=== PATIENT | female | born 1975 | race Caucasian/White ===

== ENCOUNTER 2017-02-14 15:42 | Emergency (ER) | payer BC ==
--- NOTE | 2017-02-14 16:06 | EDM.PDOC ---
ED HPI GENERAL MEDICAL PROBLEM - General Chief Complaint: Abdominal Pain Stated Complaint: UPPER ABDOMINAL PAIN Time Seen by Provider: 02/14/17 15:53 - History of Present Illness INITIAL COMMENTS - FREE TEXT/NARRATIVE: HISTORY AND PHYSICAL: History of present illness: Patient 41-year-old female history gastric bypass surgery remotely who presents with concern of abdominal pain for a month to month and a half now with associated nausea and left flank pain she denies any trauma denies fever chills chest pain shortness breath or other concern she has had some associated anorexia Review of systems: As per history of present illness and below otherwise all systems reviewed and negative. Past medical history: As per history of present illness and as reviewed below otherwise noncontributory. Surgical history: As per history of present illness and as reviewed below otherwise noncontributory. Social history: No reported history of drug or alcohol abuse. Family history: As per history of present illness and as reviewed below otherwise noncontributory. Physical exam: HEENT: Atraumatic, normocephalic, pupils reactive, negative for conjunctival pallor or scleral icterus, mucous membranes dry, throat clear, neck supple, nontender, trachea midline. Lungs: Clear to auscultation, breath sounds equal bilaterally, chest nontender. Heart: S1S2, regular, negative for clicks, rubs, or JVD. Abdomen: Soft, nondistended, no localized tenderness. Negative for masses or hepatosplenomegaly. Equivocal left-sided costovertebral tenderness. Pelvis: Stable nontender. Genitourinary: Deferred. Rectal: Deferred. Extremities: Atraumatic, negative for cords or calf pain. Neurovascular unremarkable. Neuro: Awake, alert, oriented. Cranial nerves II through XII unremarkable. Cerebellum unremarkable. Motor and sensory unremarkable throughout. Exam nonfocal. Diagnostics: CBC CMP lipase UA hCG chest x-ray EKG CT abdomen and pelvis Therapeutics: Normal saline 1 L bolus Zofran 4 mg IV Dilaudid 1 mg IV Impression: #1 abdominal/flank pain #2 history gastric bypass surgery Definitive disposition and diagnosis as appropriate pending reevaluation and review of above. 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: Neurological History: Reports: None Psychiatric History: Reports: ADHD, Bipolar, Depression, OCD Endocrine/Metabolic History: Reports: Diabetes, Type II Hematologic History: Reports: None Immunologic History: Reports: None Oncologic (Cancer) History: Reports: None Dermatologic History: Reports: None - Infectious Disease History Infectious Disease History: Reports: Chicken Pox - Past Surgical History Head Surgeries/Procedures: Reports: None GI Surgical History: Reports: Cholecystectomy Other Musculoskeletal Surgeries/Procedures:: left knee surgery Social & Family History - Family History Family Medical History: Noncontributory - Tobacco Use Smoking Status *Q: Never Smoker Second Hand Smoke Exposure: No - Alcohol Use Days Per Week of Alcohol Use: 0 - Recreational Drug Use Recreational Drug Use: No ED ROS GENERAL - Review of Systems Review Of Systems: ROS reveals no pertinent complaints other than HPI. ED EXAM, GENERAL - Physical Exam Exam: See Below (See dictation) Course - Vital Signs Last Recorded V/S: Last Vital Signs Temp 36.5 C 02/14/17 15:54 Pulse 71 02/14/17 15:54 Resp 20 02/14/17 15:54 BP 139/92 H 02/14/17 15:54 Pulse Ox 100 02/14/17 15:54 - Orders/Labs/Meds Orders: Active Orders 24 hr Category Date Time Status EKG Documentation Completion [RC] STAT Care 02/14/17 16:06 Active Abdomen Pelvis wo Cont [CT] Stat Exams 02/14/17 16:07 Taken CULTURE BLOOD [BC] Stat Lab 02/14/17 16:16 Results CULTURE BLOOD [BC] Stat Lab 02/14/17 17:30 Received CULTURE URINE [RM] Stat Lab 02/14/17 16:20 Received Sodium Chloride 0.9% [Saline Flush] Med 02/14/17 16:07 Active 10 ml FLUSH ASDIRECTED PRN Sodium Chloride 0.9% [Saline Flush] Med 07/03/17 16:07 Active 2.5 ml FLUSH ASDIRECTED PRN Blood Culture x2 Reflex Set [OM.PC] Stat Ot 02/14/17 17:03 Ordered Saline Lock Insert [OM.PC] Stat Ot 02/14/17 16:06 Ordered Medication Orders Sodium Chloride (Saline Flush) 10 ml FLUSH ASDIRECTED PRN PRN Reason: Keep Vein Open Sodium Chloride (Saline Flush) 2.5 ml FLUSH ASDIRECTED PRN PRN Reason: Keep Vein Open Labs: Laboratory Tests 02/14/17 02/14/17 02/14/17 Range/Units 16:16 16:16 16:16 WBC 9.62 (4.0-11.0) K/uL RBC 4.08 L (4.30-5.90) M/uL Hgb 9.8 L (12.0-16.0) g/dL Hct 32.5 L (36.0-46.0) % MCV 79.7 L (80.0-98.0) fL MCH 24.0 L (27.0-32.0) pg MCHC 30.2 L (31.0-37.0) g/dL RDW Std Deviation 45.3 (28.0-62.0) fl RDW Coeff of Elmo 16 H (11.0-15.0) % Plt Count 175 (150-400) K/uL MPV 10.20 (7.40-12.00) fL Neut % (Auto) 76.5 (48.0-80.0) % Lymph % (Auto) 13.4 L (16.0-40.0) % [place] % (Auto) 7.6 (0.0-15.0) % Eos % (Auto) 2.3 (0.0-7.0) % Baso % (Auto) 0.2 (0.0-1.5) % Neut # (Auto) 7.4 H (1.4-5.7) K/uL Lymph # (Auto) 1.3 (0.6-2.4) K/uL [place] # (Auto) 0.7 (0.0-0.8) K/uL Eos # (Auto) 0.2 (0.0-0.7) K/uL Baso # (Auto) 0.0 (0.0-0.1) K/uL Nucleated RBC % 0.0 /100WBC Nucleated RBCs # 0 K/uL INR 0.98 (0.86-1.11) Lactate 1.3 (0.20-2.00) mmol/L Sodium (136-146) mmol/L Potassium (3.5-5.1) mmol/L Chloride (98-110) mmol/L Carbon Dioxide (21-31) mmol/L BUN (6.0-23.0) mg/dL Creatinine (0.6-1.5) mg/dL Est Cr Clr Drug Dosing mL/min Estimated GFR (MDRD) ml/min Glucose (60-110) mg/dL Calcium (8.8-10.8) mg/dL Total Bilirubin (0.1-1.5) mg/dL AST (5-40) IU/L ALT (8-54) IU/L Alkaline Phosphatase (40-150) Total Protein (6.0-8.0) g/dL Albumin (3.5-5.0) g/dL Globulin (2.0-3.5) g/dL Albumin/Globulin Ratio (1.3-2.8) Amylase (10-90) U/L Lipase (7-80) U/L HCG, Qual (NEG) Urine Color Urine Appearance Urine pH (5.0-8.0) Ur Specific Catlett (1.001-1.035) Urine Protein (NEGATIVE) mg/dL Urine Glucose (UA) (NEGATIVE) mg/dL Urine Ketones (NEGATIVE) mg/dL Urine Occult Blood (NEGATIVE) Urine Nitrite (NEGATIVE) Urine Bilirubin (NEGATIVE) Urine Urobilinogen (<2.0) EU/dL Ur Leukocyte Esterase (NEGATIVE) Urine RBC (0-2/HPF) Urine WBC (0-5/HPF) Ur Epithelial Cells (NONE-FEW) Urine Bacteria (NEGATIVE) Urine Mucus (NONE-MOD) Urine Yeast 02/14/17 02/14/17 02/14/17 Range/Units 16:16 16:16 16:20 WBC (4.0-11.0) K/uL RBC (4.30-5.90) M/uL Hgb (12.0-16.0) g/dL Hct (36.0-46.0) % MCV (80.0-98.0) fL MCH (27.0-32.0) pg MCHC (31.0-37.0) g/dL RDW Std Deviation (28.0-62.0) fl RDW Coeff of Elmo (11.0-15.0) % Plt Count (150-400) K/uL MPV (7.40-12.00) fL Neut % (Auto) (48.0-80.0) % Lymph % (Auto) (16.0-40.0) % [place] % (Auto) (0.0-15.0) % Eos % (Auto) (0.0-7.0) % Baso % (Auto) (0.0-1.5) % Neut # (Auto) (1.4-5.7) K/uL Lymph # (Auto) (0.6-2.4) K/uL [place] # (Auto) (0.0-0.8) K/uL Eos # (Auto) (0.0-0.7) K/uL Baso # (Auto) (0.0-0.1) K/uL Nucleated RBC % /100WBC Nucleated RBCs # K/uL INR (0.86-1.11) Lactate (0.20-2.00) mmol/L Sodium 140 (136-146) mmol/L Potassium 4.0 (3.5-5.1) mmol/L Chloride 110 (98-110) mmol/L Carbon Dioxide 19 L (21-31) mmol/L BUN 10 (6.0-23.0) mg/dL Creatinine 1.1 (0.6-1.5) mg/dL Est Cr Clr Drug Dosing 72.05 mL/min Estimated GFR (MDRD) 54.5 ml/min Glucose 97 (60-110) mg/dL Calcium 9.8 (8.8-10.8) mg/dL Total Bilirubin 0.4 (0.1-1.5) mg/dL AST 15 (5-40) IU/L ALT 8 (8-54) IU/L Alkaline Phosphatase 128 (40-150) Total Protein 7.4 (6.0-8.0) g/dL Albumin 4.0 (3.5-5.0) g/dL Globulin 3.4 (2.0-3.5) g/dL Albumin/Globulin Ratio 1.2 L (1.3-2.8) Amylase 60 (10-90) U/L Lipase 51 (7-80) U/L HCG, Qual NEGATIVE (NEG) Urine Color YELLOW Urine Appearance CLOUDY Urine pH 6.0 (5.0-8.0) Ur Specific [place] 1.025 (1.001-1.035) Urine Protein TRACE (NEGATIVE) mg/dL Urine Glucose (UA) NEGATIVE (NEGATIVE) mg/dL Urine Ketones NEGATIVE (NEGATIVE) mg/dL Urine Occult Blood MODERATE (NEGATIVE) Urine Nitrite NEGATIVE (NEGATIVE) Urine Bilirubin NEGATIVE (NEGATIVE) Urine Urobilinogen 1.0 (<2.0) EU/dL Ur Leukocyte Esterase MODERATE (NEGATIVE) Urine RBC 2-4 (0-2/HPF) Urine WBC TO NUMEROUS TO COUNT H (0-5/HPF) Ur Epithelial Cells MODERATE (NONE-FEW) Urine Bacteria FEW (NEGATIVE) Urine Mucus LIGHT (NONE-MOD) Urine Yeast OCCASIONAL Meds: Medications Generic Name Dose Route Start Last Admin Trade Name Freq PRN Reason Stop Dose Admin Sodium Chloride 10 ml 02/14/17 16:07 Saline Flush FLUSH ASDIRECTED PRN Keep Vein Open Sodium Chloride 2.5 ml 02/14/17 16:07 Saline Flush FLUSH ASDIRECTED PRN Keep Vein Open Discontinued Medications Generic Name Dose Route Start Last Admin Trade Name Freq PRN Reason Stop Dose Admin Hydromorphone HCl 1 mg 02/14/17 16:07 02/14/17 17:05 Dilaudid IVPUSH 02/14/17 16:08 1 mg ONETIME ONE Administration Sodium Chloride 1,000 mls @ 999 mls/hr 02/14/17 16:07 02/14/17 16:45 Normal Saline IV 02/14/17 17:07 999 mls/hr STAT ONE Administration Ceftriaxone Sodium/Dextrose 1 50 mls @ 100 mls/hr 02/14/17 17:03 02/14/17 17: 16 gm/ Premix IV 02/14/17 17:32 100 mls/hr ONETIME ONE Administration Ondansetron HCl 4 mg 02/14/17 16:07 02/14/17 16:50 Zofran IVPUSH 02/14/17 16:08 4 mg ONETIME ONE Administration Departure - Departure Time of Disposition: 16:06 Disposition: DC/Tfer to Acute Hospital 02 Condition: Good Clinical Impression: Obstructive uropathy, Urinary tract infection - Discharge Information Referrals: Rian Metcalf MD [Primary Care Provider] - Forms: ED Department Discharge - My Orders Last 24 Hours: My Active Orders 02/14/17 16:06 EKG Documentation Completion [RC] STAT Saline Lock Insert [OM.PC] Stat 02/14/17 16:07 Abdomen Pelvis wo Cont [CT] Stat Sodium Chloride 0.9% [Saline Flush] 10 ml FLUSH ASDIRECTED PRN Sodium Chloride 0.9% [Saline Flush] 2.5 ml FLUSH ASDIRECTED PRN 02/14/17 16:16 CULTURE BLOOD [BC] Stat 02/14/17 16:20 CULTURE URINE [RM] Stat 02/14/17 17:03 Blood Culture x2 Reflex Set [OM.PC] Stat 02/14/17 17:30 CULTURE BLOOD [BC] Stat - Assessment/Plan Last 24 Hours: My Active Orders 02/14/17 16:06 EKG Documentation Completion [RC] STAT Saline Lock Insert [OM.PC] Stat 02/14/17 16:07 Abdomen Pelvis wo Cont [CT] Stat Sodium Chloride 0.9% [Saline Flush] 10 ml FLUSH ASDIRECTED PRN Sodium Chloride 0.9% [Saline Flush] 2.5 ml FLUSH ASDIRECTED PRN 02/14/17 16:16 CULTURE BLOOD [BC] Stat 02/14/17 16:20 CULTURE URINE [RM] Stat 02/14/17 17:03 Blood Culture x2 Reflex Set [OM.PC] Stat 02/14/17 17:30 CULTURE BLOOD [BC] Stat
[2017-02-14] MEDS ORDERED: Ondansetron 4 MG/2 ML SDV IVPUSH ONE (16:07)
[2017-02-14] MEDS ORDERED: Sodium Chloride 0.9% 10 ML Syringe FLUSH PRN (16:07)
[2017-02-14] MEDS ORDERED: HYDROmorphone 2 MG/ML Syringe IVPUSH ONE (16:07)
[2017-02-14] MEDS ORDERED: Sodium Chloride 0.9% 1,000 ML IV ONE (16:07)
[2017-02-14] MEDS ORDERED: Sodium Chloride 0.9% 2.5 ML Syringe FLUSH PRN (16:07)
[2017-02-14] MEDS ORDERED: cefTRIAXone 1 GM in Premix Bag 1 BAG IV ONE (17:03)
[2017-02-14] MEDS ORDERED: HYDROmorphone 1 MG/ML Syringe IVPUSH ONE (18:55)
[2017-02-14 19:05] VITALS: BP 146/75
--- NOTE | 2017-02-16 14:27 | CT ---
EXAM DATE: 02/14/17 PATIENT'S AGE: 41 Patient: CHRIS CARDENAS Facility: [place], [place] Site . Site : 1975 Study: CT Abdomen/Pelvis [id number]/3/2017 5:46:47 PM Ordering Physician: Ronda Jade Final Report: INDICATION: L flank pain TECHNIQUE: Noncontrast CT scan of the abdomen and pelvis. COMPARISON: CT scan of the abdomen and pelvis dated 04 October 2014. FINDINGS: The lung bases are unremarkable. No focal abnormalities identified in the visualized portions of the liver, spleen, pancreas, and adrenal glands. 4 mm stone in the proximal left ureter which causes mild left-sided hydronephrosis and edema of the left kidney. A few nonobstructing nephroliths in the right kidney. No right-sided hydronephrosis. No other uroliths. Colonic diverticulosis with no evidence of diverticulitis. Gastric bypass changes. Normal appendix. Small area of fat necrosis in the anterior aspect of the left lower abdomen. Scattered small retroperitoneal lymph nodes which do not meet size criteria for adenopathy. No pelvic sidewall or mesenteric adenopathy. IMPRESSION: 4 mm stone in the proximal left ureter which causes mild left-sided hydronephrosis. Dictated by Pratik Mckeon MD @ 02/14/2017 6:16:51 PM Dictated by: Pratik Mckeon MD @ 02/14/2017 18:16:58 (Electronic Signature) Report Signed by Proxy. MESHA
== END 2017-02-14 19:05 ==
LOC: MW.ED 15:42
DX: N13.9 Obstructive and reflux uropathy, unspecified (principal); N39.0 Urinary tract infection, site not specified; E11.9 Type 2 diabetes mellitus without complications; Z79.899 Other long term (current) drug therapy; Z90.49 Acquired absence of other specified parts of digestive tract
CPT/HCPCS: 36415; 74176; 80053; 81001; 82150; 83605; 83690; 84703; 85025; 85610; 87040; 87086; 87088; 87186; 93005; 96361; 96365; 96375; 96376; 99285; J0696; J1170; J2405; J7040; 87077

== ENCOUNTER 2017-02-15 20:03 | Emergency (ER) | payer BC ==
--- NOTE | 2017-02-15 20:14 | EDM.PDOC ---
ED HPI GENERAL MEDICAL PROBLEM - General Chief Complaint: Genitourinary Problem Stated Complaint: UNKNOWN Time Seen by Provider: 02/15/17 20:06 - History of Present Illness INITIAL COMMENTS - FREE TEXT/NARRATIVE: This patient was seen by myself yesterday and transferred to [facility] with obstructive uropathy and urinary tract infection she was seen there evaluating emergency department urology was reportedly consult that and patient was discharged on pain medication and Flomax in the interim blood cultures that were drawn in the emergency department yesterday by myself did come back positive for gram-negative rods patient continues to have pain she has had some chills denies bethanie fever denies nausea or vomiting upon arrival here patient requests that she drive herself to [place] for evaluation and admission through the emergency department I discussed case with the ER doc in [place] Dr. Cabral who does agree to see the patient and does have plans on admission for IV antibiotics monitoring a urology consultation this was all discussed with the patient patient defers any medical screening exam are diagnostics here she was offered all the above including transfer by ambulance and declines she will be discharged as refusing medical screening exam for direct follow-up per private vehicle and her request to [facility] as above lower back Pain Score (Numeric/FACES): 7 - Related Data Allergies Allergy/AdvReac Type Severity Reaction Status Date / Time No Known Allergies Allergy Verified 02/15/17 20:04 Home Meds: Home Meds oxyCODONE HCl/Acetaminophen [oxyCODONE-Acetaminophen 5-325] 1 tab PO Q4H PRN 11/29 [History] Past Medical History HEENT History: Reports: None Cardiovascular History: Reports: None Respiratory History: Reports: None Other Gastrointestinal History: gastric bypass Genitourinary History: Reports: None 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: Neurological History: Reports: None Psychiatric History: Reports: ADHD, Bipolar, Depression, OCD Endocrine/Metabolic History: Reports: Diabetes, Type II Hematologic History: Reports: None Immunologic History: Reports: None Oncologic (Cancer) History: Reports: None Dermatologic History: Reports: None - Infectious Disease History Infectious Disease History: Reports: Chicken Pox - Past Surgical History Head Surgeries/Procedures: Reports: None GI Surgical History: Reports: Cholecystectomy Other Musculoskeletal Surgeries/Procedures:: left knee surgery Social & Family History - Family History Family Medical History: Noncontributory - Tobacco Use Smoking Status *Q: Never Smoker Second Hand Smoke Exposure: No - Alcohol Use Days Per Week of Alcohol Use: 0 - Recreational Drug Use Recreational Drug Use: No ED ROS GENERAL - Review of Systems Review Of Systems: See Below (Not applicable) ED EXAM, GENERAL - Physical Exam Exam: See Below (Not applicable) Course - Vital Signs Last Recorded V/S: Last Vital Signs Temp 37.4 C 02/15/17 20:05 Pulse 116 H 02/15/17 20:05 Resp 18 02/15/17 20:05 BP 135/68 02/15/17 20:05 Pulse Ox 100 02/15/17 20:05 Departure - Departure Time of Disposition: 20:13 Disposition: Against Medical Advice 07 Condition: Undetermined Clinical Impression: History of UTI, Obstructive uropathy - Discharge Information Forms: ED Department Discharge
== END 2017-02-15 20:30 | disposition left against medical advice (07) ==
LOC: MW.ED 20:03
CPT/HCPCS: 99282; 99283

== ENCOUNTER 2017-05-26 06:23 | Day surgery (SDC) | payer BC ==
[~2017-05-26 06:23] MED LIST: Lactated Ringers 1,000 ML IV SCH
--- NOTE | 2017-05-26 07:13 | PCM.PREANE ---
Preanesthetic Assessment - Anesthesia/Transfusion/Family Hx Anesthesia History: Prior Anesthesia Without Reaction Family History of Anesthesia Reaction: No Transfusion History: No Prior Transfusion(s) Intubation History: Unknown - Review of Systems General: No Symptoms Pulmonary: No Symptoms Cardiovascular: No Symptoms Gastrointestinal: Nausea, Vomiting Neurological: No Symptoms Other: Reports: None - Physical Assessment Height: 1.75 m Weight: 100.698 kg ASA Class: 2 Mental Status: Alert & Oriented x3 Airway Class: Mallampati = 2 Dentition: Reports: Broken Tooth/Teeth, Caries (front upper teeth significant teeth defect sec. to caries) Thyro-Mental Finger Breadths: 2 Mouth Opening Finger Breadths: 3 ROM/Head Extension: Full Lungs: Clear to Auscultation, Normal Respiratory Effort Cardiovascular: Regular Rate, Regular Rhythm - Lab Values: Laboratory Last Values POC Glucose 77 mg/dL (60-110) 05/26/17 06:41 Urine HCG, Qual NEGATIVE (NEGATIVE) 05/26/17 06:26 - Allergies Allergies/Adverse Reactions: Allergies Allergy/AdvReac Type Severity Reaction Status Date / Time No Known Allergies Allergy Verified 05/23/17 16:19 - Blood Blood Available: No - Anesthesia Plan Pre-Op Medication Ordered: None - Acknowledgements Anesthesia Type Planned: MAC Pt an Appropriate Candidate for the Planned Anesthesia: Yes Alternatives and Risks of Anesthesia Discussed w Pt/Guardian: Yes Pt/Guardian Understands and Agrees with Anesthesia Plan: Yes PreAnesthesia Questionnaire HEENT History: Reports: None Other HEENT History: wears glasses Cardiovascular History: Reports: None, High Cholesterol Respiratory History: Reports: None, Other (See Below) (h/o sleep apnea, patient claims it is gone after losing 100 lb. post gastric bypass) Gastrointestinal History: Reports: GERD, Other (See Below) (h/o nonalcoholic steatohepatitis) Other Gastrointestinal History: gastric bypass Genitourinary History: Reports: Renal Calculus [employer] History: Reports: Musculoskeletal History: Reports: Gout Neurological History: Reports: Concussion, Headaches, Chronic Other Neuro History: has "tension headaches" Psychiatric History: Reports: ADHD, Bipolar, Depression, OCD Endocrine/Metabolic History: Reports: Diabetes, Type II, Obesity/BMI 30+ Other Endocrine/Metabolic History: no longer needed meds for diabetes after gastric bypass Hematologic History: Reports: Anemia Other Hematologic History: currently taking iron infusions weekly Immunologic History: Reports: None Oncologic (Cancer) History: Reports: None Dermatologic History: Reports: None - Infectious Disease History Infectious Disease History: Reports: Chicken Pox - Past Surgical History GI Surgical History: Reports: Bariatric Procedure, Cholecystectomy, Colonoscopy , EGD Female Surgical History: Reports: Other (See Below) Other Female Surgeries/Procedures: stent placement and removal for kidney stones (stones passed) Musculoskeletal Surgical History: Reports: Arthroscopic Knee Other Musculoskeletal Surgeries/Procedures:: "muscles around the knee were cut" 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
[2017-05-26] MEDS ORDERED: Dextrose 5% in Water 1,000 ML IV SCH (07:15)
[2017-05-26] MEDS ORDERED: Midazolam 1 MG/ML 2 ML SDV ONE (07:31)
[2017-05-26] MEDS ORDERED: Propofol 200 MG/20 ML SDV ONE (07:31)
--- NOTE | 2017-05-26 08:56 | PCM.OPNOTE ---
- General Post-Op/Procedure Note Date of Surgery/Procedure: 05/26/17 Operative Procedure(s): EGD w/ biopsy and gastric polypectomy. Colonoscopy w/ cold ascending colon and rectal polypectomies. Pre Op Diagnosis: Intractable nausea and vomiting. Anemia. Hx of gastric bypass. Post-Op Diagnosis: Patent gastrojejunostomy. Gastric polyp. Ascending colon polyp. Sigmoid diverticulosis. Rectal polyp. Anesthesia Technique: MAC (ASA II) Primary Surgeon: Jw Fang Condition: Good Free Text/Narrative:: Dictation [id number]. CPT CODE 28629/[id number]
[2017-05-26] MEDS ORDERED: Lactated Ringers 1,000 ML IV SCH (09:00)
--- NOTE | 2017-05-26 09:14 | OR ---
SURGEON: Jw Fang M.D. DATE OF PROCEDURE: 05/26/2017 OPERATION PERFORMED: Colonoscopy with cold ascending colon polypectomy and cold rectal polypectomy. ANESTHESIA: MAC. ASA CLASSIFICATION: II. PREOPERATIVE DIAGNOSIS: Anemia of unknown etiology. POSTOPERATIVE DIAGNOSES: 1. Ascending colon polyp. 2. Rectal polyp. 3. Sigmoid diverticulosis. DESCRIPTION OF PROCEDURE: With the patient having completed esophagogastroduodenoscopy with biopsy, she was now positioned in the left lateral decubitus position. The colonoscope was inserted into the rectum and advanced with minimal difficulty to the cecum. The cecum was identified by internal landmarks and external pressure. The colonoscope was retroflexed to visualize the ascending colon from below then straightened and slowly withdrawn. One small polyp was encountered in the ascending colon and removed with multiple bites of the cold biopsy forceps. The remainder of the ascending colon, hepatic flexure, transverse colon, splenic flexure, and descending colon showed no tumors, polyps, diverticula, angiodysplasia, or evidence of inflammatory bowel disease. Sigmoid colon demonstrates moderate diverticular disease. No stricture, spasm, or bleeding was noted. No polyps were encountered in the sigmoid colon. The colonoscope was withdrawn to the rectum and one small polyp was encountered in the distal rectum. This was removed with the cold biopsy forceps. The colonoscope was retroflexed in the rectum to visualize the anal orifice from above. Again, no tumors or polyps were seen and there were no acute hemorrhoidal changes. The colonoscope was then straightened, the rectum aspirated, and the colonoscope removed. The patient again tolerated the procedure well and was taken to recovery room in stable condition. FABIAN / JORDYN /[id number]
[2017-05-26 09:26] VITALS: BP 118/65
--- NOTE | 2017-05-26 12:01 | OR ---
SURGEON: Jw Fang M.D. DATE OF PROCEDURE: 05/26/2017 OPERATION PERFORMED: Esophagogastroduodenoscopy with biopsy. ANESTHESIA: MAC. ASA CLASSIFICATION: II. PREOPERATIVE DIAGNOSES: Epigastric pain, anemia, nausea and vomiting, and history of gastric bypass. POSTOPERATIVE DIAGNOSIS: Patent anastomosis, gastric polyp. DESCRIPTION OF PROCEDURE: The patient was taken to the endoscopy room, positioned on the endoscopy table in the supine position. Time-out was called for appropriate identification of the patient and procedure. Monitored anesthesia care was provided. The bite block was placed between the patient's teeth. The gastroscope was inserted through the mouth and advanced without difficulty through the esophagus and stomach into the duodenum, where examination was carried out in a retrograde fashion. The anastomosis was easily cannulated. The gastric pouch was quite small. There was 1 small polyp noted in the stomach, and this was removed with the cold biopsy forceps. The anastomosis was widely patent. It was biopsied. The gastroscope was retroflexed to visualize the proximal stomach where a small hiatal hernia can be seen. The gastroscope was then straightened and slowly withdrawn. The GE junction was well defined and shows no acute inflammatory changes or ulcerations. The esophagus demonstrated good contractility. The vocal cords were visualized as the scope was withdrawn and noted to move symmetrically. No vocal cord lesions were identified. The gastroscope was then removed with the patient having tolerated the procedure well. Following colonoscopy, she was taken to the recovery room in stable condition. FABIAN COBB /[id number]
== END 2017-05-26 09:20 | disposition home or self-care (01) ==
LOC: MW.SDS 06:23
PROVIDERS: ATTEND Surgery
DX: K31.7 Polyp of stomach and duodenum (principal); K31.89 Other diseases of stomach and duodenum; D12.2 Benign neoplasm of ascending colon; K62.1 Rectal polyp; K44.9 Diaphragmatic hernia without obstruction or gangrene; K57.30 Diverticulosis of large intestine without perforation or abscess without bleeding; F90.9 Attention-deficit hyperactivity disorder, unspecified type; F31.9 Bipolar disorder, unspecified; E11.9 Type 2 diabetes mellitus without complications; E78.5 Hyperlipidemia, unspecified; M10.9 Gout, unspecified; E66.01 Morbid (severe) obesity due to excess calories; K75.81 Nonalcoholic steatohepatitis (NASH); G47.33 Obstructive sleep apnea (adult) (pediatric); D64.9 Anemia, unspecified; Z79.899 Other long term (current) drug therapy; Z98.0 Intestinal bypass and anastomosis status; Z98.84 Bariatric surgery status; Z98.890 Other specified postprocedural states; Z87.891 Personal history of nicotine dependence; Z87.442 Personal history of urinary calculi; Z68.32 Body mass index [BMI] 32.0-32.9, adult
CPT/HCPCS: 43239; 45380; 81025; 82962; 88305; 88312; J2250; J7120; 00740; J2704

== ENCOUNTER 2020-07-18 08:38 | Day surgery (SDC) | payer BC ==
[~2020-07-18 08:38] MED LIST changes: +Lidocaine 2% 5 ML SDV ONE; +Midazolam 1 MG/ML 2 ML SDV ONE; +Propofol 200 MG/20 ML SDV ONE; +fentaNYL 100 MCG/2 ML SDV ONE
--- NOTE | 2020-07-18 09:13 | PCM.PREANE ---
Preanesthetic Assessment - Anesthesia/Transfusion/Family Hx Anesthesia History: Prior Anesthesia Without Reaction Family History of Anesthesia Reaction: No Transfusion History: No Prior Transfusion(s) Intubation History: Unknown - Review of Systems General: No Symptoms Pulmonary: No Symptoms Cardiovascular: No Symptoms Gastrointestinal: No Symptoms Neurological: No Symptoms Other: Reports: None - Physical Assessment NPO Status Date: 07/17/20 Height: 5 ft 10 in Weight: 108.862 kg ASA Class: 2 Mental Status: Alert & Oriented x3 Airway Class: Mallampati = 2 Dentition: Reports: Broken Tooth/Teeth ROM/Head Extension: Full Lungs: Clear to Auscultation, Normal Respiratory Effort Cardiovascular: Regular Rate, Regular Rhythm - Allergies Allergies/Adverse Reactions: Allergies Allergy/AdvReac Type Severity Reaction Status Date / Time No Known Allergies Allergy Verified 07/14/20 10:09 - Blood Blood Available: No - Anesthesia Plan Pre-Op Medication Ordered: None - Acknowledgements Anesthesia Type Planned: General Anesthesia (tiva) Pt an Appropriate Candidate for the Planned Anesthesia: Yes Alternatives and Risks of Anesthesia Discussed w Pt/Guardian: Yes Pt/Guardian Understands and Agrees with Anesthesia Plan: Yes Additional Comments: PMH: adhd, bipolar disorder, gout, (dm2 and MIGUEL ÁNGEL have resolved since gastric bypass surg) PLAN: tiva PreAnesthesia Questionnaire HEENT History: Reports: None Other HEENT History: wears glasses Cardiovascular History: Reports: None, High Cholesterol Respiratory History: Reports: None, Other (See Below) Other Respiratory History: sleep apnea in the past, not since weight loss Gastrointestinal History: Reports: GERD, Other (See Below) Other Gastrointestinal History: gastric bypass Genitourinary History: Reports: None 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: Musculoskeletal History: Reports: Gout Neurological History: Reports: None Other Neuro History: has "tension headaches" Psychiatric History: Reports: ADHD, Bipolar, Depression, OCD Endocrine/Metabolic History: Reports: Diabetes, Type II Other Endocrine/Metabolic History: no longer needed meds for diabetes after gastric bypass Hematologic History: Reports: None Other Hematologic History: currently taking iron infusions weekly Immunologic History: Reports: None Oncologic (Cancer) History: Reports: None Dermatologic History: Reports: None - Infectious Disease History Infectious Disease History: Reports: Chicken Pox - Past Surgical History GI Surgical History: Reports: Bariatric Procedure, Cholecystectomy Other Female Surgeries/Procedures: stent placement and removal for kidney stones (stones passed) - SUBSTANCE USE Tobacco Use Status *Q: Former Tobacco User Tobacco Use Within Last Twelve Months: No - HOME MEDS Home Medications: Home Meds Acetaminophen [Tylenol Arthritis] 1 - 2 tab PO ASDIRECTED PRN 07/14/20 [History] Brexpiprazole [Rexulti] 2 mg PO BEDTIME 07/14/20 [History] LORazepam [Ativan] 0.5 mg PO ASDIRECTED PRN 07/14/20 [History] Triplett Carbonate 300 mg PO ACBREAKFAST 07/14/20 [History] Topiramate 50 mg PO BID 07/14/20 [History] Vortioxetine Hydrobromide [Trintellix] 15 mg PO DAILY 07/14/20 [History] Zolpidem Tartrate 5 mg PO BEDTIME PRN 07/14/20 [History] Triplett Carbonate 600 mg PO BEDTIME 07/16/20 [History] Ondansetron [Zofran] 5 mg PO ASDIRECTED PRN 07/16/20 [History] - CURRENT (IN HOUSE) MEDS Current Meds: Current Medications Lactated Ringer's (Ringers, Lactated) 1,000 mls @ 125 mls/hr IV ASDIRECTED CHAO Discontinued Medications Fentanyl (Sublimaze) Confirm Administered Dose 100 mcg .ROUTE .STK-MED ONE Stop: 07/18/20 08:28 Lidocaine (Xylocaine-Mpf 2%) Confirm Administered Dose 5 ml .ROUTE .STK-MED ONE Stop: 07/18/20 08:28 Midazolam HCl (Versed 1 Mg/Ml) Confirm Administered Dose 2 mg .ROUTE .STK-MED ONE Stop: 07/18/20 08:28 Propofol (Diprivan 20 Ml) Confirm Administered Dose 400 mg .ROUTE .STK-MED ONE Stop: 07/18/20 08:28
[2020-07-18] MEDS ORDERED: Glycopyrrolate 0.2 MG/ML SDV ONE ×2 (11:08→11:10)
[2020-07-18] MEDS ORDERED: Propofol 200 MG/20 ML SDV ONE (11:24)
[2020-07-18] MEDS ORDERED: ePHEDrine 50 MG/ML SDV ONE (11:33)
--- NOTE | 2020-07-18 12:10 | PCM.OPNOTE ---
- General Post-Op/Procedure Note Date of Surgery/Procedure: 07/18/20 Operative Procedure(s): Esophagogastroduodenoscopy with gastric biopsy. Colonoscopy with ascending colon polypectomy 2, and rectal polypectomy 1. Pre Op Diagnosis: Gastroesophageal reflux disease. Personal history of colon po lyps. 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 Patent anastomosis. Ascending colon polyps 2. Rectal polyp 1. Sigmoid diverticulosis. Anesthesia Technique: MAC (ASA II) Primary Surgeon: Jw Fang Condition: Good Free Text/Narrative:: DICTATION [id number] CPT CODE 49020/[id number]
[2020-07-18] MEDS ORDERED: Lactated Ringers 1,000 ML IV SCH (12:15)
--- NOTE | 2020-07-18 12:17 | PCM.POSTAN ---
POST ANESTHESIA ASSESSMENT - MENTAL STATUS Mental Status: Alert, Oriented - VITAL SIGNS Vital Signs: Last Vital Signs Temp 96.8 F L 07/18/20 09:25 Pulse 82 07/18/20 12:15 Resp 16 07/18/20 12:15 BP 113/69 07/18/20 12:15 Pulse Ox 100 07/18/20 12:15 - RESPIRATORY Respiratory Status: Respiratory Rate WNL, Airway Patent, O2 Saturation Stable - CARDIOVASCULAR CV Status: Pulse Rate WNL, Blood Pressure Stable - GASTROINTESTINAL GI Status: No Symptoms - POST OP HYDRATION Hydration Status: Adequate & Stable
--- NOTE | 2020-07-18 12:17 | PCM48HPAN ---
Post Anesthesia Note - EVALUATION WITHIN 48HRS OF ANESTHETIC Vital Signs in Normal Range: Yes Patient Participated in Evaluation: Yes Respiratory Function Stable: Yes Airway Patent: Yes Cardiovascular Function Stable: Yes Hydration Status Stable: Yes Pain Control Satisfactory: Yes Nausea and Vomiting Control Satisfactory: Yes Mental Status Recovered: Yes Vital Signs: Last Vital Signs Temp 96.8 F L 07/18/20 09:25 Pulse 82 07/18/20 12:15 Resp 16 07/18/20 12:15 BP 113/69 07/18/20 12:15 Pulse Ox 100 07/18/20 12:15
--- NOTE | 2020-07-18 13:13 | OR ---
SURGEON: Jw Fang M.D. DATE OF PROCEDURE: 07/18/2020 OPERATION PERFORMED: Esophagogastroduodenoscopy with biopsy. PRIMARY SURGEON: Jw Fang MD ANESTHESIA: MAC. ASA CLASSIFICATION: II. PREOPERATIVE DIAGNOSES: Persistent gastroesophageal reflux disease, status post Jackeline-en-Y gastrojejunostomy for morbid obesity. POSTOPERATIVE DIAGNOSES: Pouch gastritis with patent anastomosis. DESCRIPTION OF PROCEDURE: The patient was taken to the endoscopy room and positioned on the endoscopy table in the left lateral decubitus position. Time-out was called for appropriate identification of patient and procedure. Monitored anesthesia care was provided. The bite block was placed between the patient's teeth. The gastroscope was inserted through the bite block into the oropharynx and advanced without difficulty through the anastomosis into the small bowel where examination was now carried out in a retrograde fashion. The anastomosis was widely patent. I could see one staple present. The stomach just above the anastomosis did show [id number] gastritis. Biopsy of this area was obtained. The gastroscope was retroflexed to visualize the proximal stomach and esophagus. No acute inflammatory changes or ulcerations were noted. The gastroscope was then straightened and slowly withdrawn. The GE junction was well defined and showed no acute inflammatory changes or ulcerations. The esophagus demonstrated good contractility. The vocal cords were briefly visualized as the scope was withdrawn and noted to move symmetrically. The gastroscope was then removed with the patient having tolerated this portion of the procedure well. Following colonoscopy, she was taken to recovery room in stable condition. FABIAN / JORDYN /[id number]
--- NOTE | 2020-07-18 13:13 | OR ---
SURGEON: Jw Fang M.D. DATE OF PROCEDURE: 07/18/2020 OPERATION PERFORMED: Colonoscopy with cold ascending colon and rectal polypectomies. PRIMARY SURGEON: Jw Fang MD ANESTHESIA: MAC. ASA CLASSIFICATION: II. PREOPERATIVE DIAGNOSIS: Personal history of colon polyps. POSTOPERATIVE DIAGNOSES: 1. Ascending colon polyp x2. 2. Rectal polyp. 3. Sigmoid diverticulosis. DESCRIPTION OF PROCEDURE: With the patient having completed esophagogastroduodenoscopy, she was maintained in the left lateral decubitus position. The colonoscope was inserted into the rectum and advanced with minimal difficulty to the cecum. The cecum was identified by internal landmarks and external pressure. The colonoscope was retroflexed to visualize the ascending colon from below, then straightened and slowly withdrawn. As the scope was withdrawn, two small polyps were encountered in close proximity in the ascending colon. These were removed in their entirety with the cold biopsy forceps. The remainder of the ascending colon, hepatic flexure, transverse colon, splenic flexure, and descending colon showed no tumors, polyps, diverticula, or angiodysplastic changes. Moderate diverticular change was noted in the sigmoid colon. No stricture, spasm, or bleeding was noted. No polyps were encountered. One more polyp was encountered in the rectum and likewise removed with the cold biopsy forceps. Having completed that, the colonoscope was retroflexed to visualize the anal orifice from above. No tumors or polyps were seen and there were no acute hemorrhoidal changes. The colonoscope was then straightened, the rectum aspirated, and the colonoscope removed. The patient tolerated the procedure well and was taken to recovery room in stable condition. FABIAN / JORDYN /[id number]
[2020-07-18 13:34] VITALS: BP 113/61; PULSE 77
== END 2020-07-18 12:35 | disposition home or self-care (01) ==
LOC: MW.SDS 08:38
PROVIDERS: ATTEND Surgery
DX: Z12.11 Encounter for screening for malignant neoplasm of colon (principal); D12.2 Benign neoplasm of ascending colon; D12.8 Benign neoplasm of rectum; K57.30 Diverticulosis of large intestine without perforation or abscess without bleeding; K21.9 Gastro-esophageal reflux disease without esophagitis; E66.01 Morbid (severe) obesity due to excess calories; F41.9 Anxiety disorder, unspecified; E11.9 Type 2 diabetes mellitus without complications; E78.5 Hyperlipidemia, unspecified; G47.33 Obstructive sleep apnea (adult) (pediatric); Z79.899 Other long term (current) drug therapy; Z98.84 Bariatric surgery status; Z01.812 Encounter for preprocedural laboratory examination; Z20.828 Contact with and (suspected) exposure to other viral communicable diseases; Z87.891 Personal history of nicotine dependence; Z68.34 Body mass index [BMI] 34.0-34.9, adult
CPT/HCPCS: 81025; 88305; 88312; J2001; J2250; J2704; J3010; J3490; J7120

== ENCOUNTER 2021-09-16 08:50 | Emergency (ER) | payer BC ==
[2021-09-16] MEDS ORDERED: Lactated Ringers 1,000 ML IV STA (09:07)
[2021-09-16] MEDS ORDERED: Ondansetron 4 MG/2 ML SDV IVPUSH ONE (09:43)
[2021-09-16] MEDS ORDERED: Ketorolac 30 MG/ML SDV IVPUSH ONE (09:44)
[2021-09-16 09:56] LABS: BLOOD UREA NITROGEN,BUN 8 mg/dL (7.0-18.0); CARBON DIOXIDE,CO2 30.8 mmol/L (21.0-32.0); CHLORIDE,CL 103 mmol/L (98-107); GLUCOSE RANDOM 111 mg/dL (74-106); POTASSIUM,K 3.3 mmol/L (3.5-5.1); SODIUM,NA 139 mmol/L (136-145)
[2021-09-16] MEDS ORDERED: Potassium Chloride 10% 20 MEQ/15 ML Soln 30 ML UD Cup PO ONE (10:04)
[2021-09-16] MEDS ORDERED: Nitrofurantoin Monohydrate/Macrocrystalline 100 MG Cap PO ONE (10:48)
[2021-09-16 11:08] VITALS: BP 104/67; PULSE 71
== END 2021-09-16 11:12 | disposition home or self-care (01) ==
LOC: MW.ED 08:50
DX: N39.0 Urinary tract infection, site not specified (principal); R19.7 Diarrhea, unspecified; E87.6 Hypokalemia; E11.9 Type 2 diabetes mellitus without complications; M10.9 Gout, unspecified; E78.00 Pure hypercholesterolemia, unspecified; Z79.899 Other long term (current) drug therapy
CPT/HCPCS: 36415; 80053; 81001; 85025; 96374; 96375; 99284; A9270; J1885; J2405; J7120

== ENCOUNTER 2024-08-22 13:02 | Emergency (ER) | payer BC ==
[2024-08-22 13:28] LABS: APPEARANCE,URINE CLEAR; COLOR,URINE YELLOW; GLUCOSE,URINE NEGATIVE (NEGATIVE); KETONES,URINE NEGATIVE (NEGATIVE); LEUKOCYTE ESTERASE,URINE NEGATIVE (NEGATIVE); NITRITE,URINE NEGATIVE (NEGATIVE); OCCULT BLOOD,URINE TRACE-INTACT (NEGATIVE); PH,URINE 5.5 (5.0-8.0); PROTEIN,URINE 30 mg/dL (NEGATIVE)
[2024-08-22 13:31] LABS: BILIRUBIN,URINE SMALL (NEGATIVE)
[2024-08-22 13:33] LABS: BACTERIA,URINE FEW (NEGATIVE); MUCUS,URINE LIGHT (NONE-MOD); SQUAMOUS EPITHELIAL CELLS,UR FEW
[2024-08-22] MEDS: Ondansetron 4 MG/2 ML SDV IVPUSH ONE (14:02)
[2024-08-22] MEDS: Sodium Chloride 0.9% 1,000 ML IV ONE (14:03)
[2024-08-22] MEDS: Morphine 4 MG/ML Syringe IVPUSH ONE (14:03)
[2024-08-22] MEDS: Lidocaine 4% 1 each Patch TOP SCH (14:37)
[2024-08-22 14:45] VITALS: BP 126/79; PULSE 63
== END 2024-08-22 14:44 | disposition home or self-care (01) ==
LOC: MW.ED 13:02
DX: M54.50 Low back pain, unspecified (principal); M54.6 Pain in thoracic spine; E78.00 Pure hypercholesterolemia, unspecified; K21.9 Gastro-esophageal reflux disease without esophagitis; E11.9 Type 2 diabetes mellitus without complications; Z79.899 Other long term (current) drug therapy; Z75.8 Other problems related to medical facilities and other health care
CPT/HCPCS: 81001; 87428; 96361; 96374; 96375; 99283; A9270; J2270; J2405; J7030

== ENCOUNTER 2025-04-04 06:27 | Day surgery (SDC) | payer BC ==
[~2025-04-04 06:27] MED LIST changes: -Lactated Ringers 1,000 ML IV SCH; -Lidocaine 2% 5 ML SDV ONE; -Midazolam 1 MG/ML 2 ML SDV ONE; -Propofol 200 MG/20 ML SDV ONE; +Sodium Chloride 0.9% 10 ML Syringe FLUSH PRN; +Sodium Chloride 0.9% 2.5 ML Syringe FLUSH PRN; -fentaNYL 100 MCG/2 ML SDV ONE
[2025-04-04] MEDS: Lactated Ringers 1,000 ML IV SCH (06:55)
[2025-04-04] MEDS ORDERED: dexmedeTOMIDine HCl 200 MCG/2 ML SDV ONE (08:06)
[2025-04-04] MEDS ORDERED: propofoL 500 MG/50 ML 50 ML ONE (08:08)
[2025-04-04 10:02] VITALS: BP 122/86; PULSE 51
== END 2025-04-04 09:53 | disposition home or self-care (01) ==
LOC: MW.SDS 06:27
PROVIDERS: ATTEND Surgery
DX: Z12.11 Encounter for screening for malignant neoplasm of colon (principal); D12.2 Benign neoplasm of ascending colon; D12.3 Benign neoplasm of transverse colon; K29.50 Unspecified chronic gastritis without bleeding; K20.0 Eosinophilic esophagitis; K44.9 Diaphragmatic hernia without obstruction or gangrene; K57.30 Diverticulosis of large intestine without perforation or abscess without bleeding; E11.9 Type 2 diabetes mellitus without complications; I10 Essential (primary) hypertension; E66.01 Morbid (severe) obesity due to excess calories; Z79.899 Other long term (current) drug therapy; Z87.891 Personal history of nicotine dependence; Z86.0100 Personal history of colon polyps, unspecified
CPT/HCPCS: 43239; 45380; 81025; J2704; J7120; 00813

== ENCOUNTER 2025-07-07 08:25 | Emergency (ER) | payer BC ==
[2025-07-07] MEDS ORDERED: Lidocaine 1% with EPINEPHrine 1:100,000 10 ML MDV INFILT ONE (08:27)
[2025-07-07] MEDS ORDERED: Lidocaine/Epineph/Tetracaine 3 ML Syringe TOP ONE (08:36)
[2025-07-07] MEDS: Diphtheria,Pertussis(Acell),Tetanus Vaccine 0.5 ML Syringe IM ONE (09:05)
[2025-07-07 09:10] VITALS: BP 165/92; PULSE 91
[2025-07-07] MEDS: Bacitracin Oint 1 GM U/D Packet TOP ONE (09:19)
== END 2025-07-07 09:22 | disposition home or self-care (01) ==
LOC: MW.ED 08:25
DX: S51.011A Laceration without foreign body of right elbow, initial encounter (principal); S50.311A Abrasion of right elbow, initial encounter; Z23 Encounter for immunization; R03.0 Elevated blood-pressure reading, without diagnosis of hypertension; E11.9 Type 2 diabetes mellitus without complications; Z90.49 Acquired absence of other specified parts of digestive tract; W54.8XXA Other contact with dog, initial encounter
CPT/HCPCS: 90471; 90715; 99282; A9270